=== PATIENT | female | born 1995 | race Caucasian/White ===

== ENCOUNTER 2017-06-16 17:25 | Emergency (ER) | payer SELFPAY ==
[~2017-06-16] VITALS: Ht 157.5 cm; Wt 74.0 kg
[2017-06-16] MEDS ORDERED: BACITRACIN ZINC OINT UDPKT TOP ONE (21:15)
[2017-06-16] MEDS ORDERED: ACETAMINOPHEN 500MG TABLET PO ONE (21:15)
[2017-06-16 21:30] VITALS: BP 129/78
== END 2017-06-16 21:38 | disposition home or self-care (01) ==
LOC: ER 17:39
DX: S70.212A Abrasion, left hip, initial encounter (principal); M79.644 Pain in right finger(s); V49.40XA Driver injured in collision with unspecified motor vehicles in traffic accident, initial encounter; Y93.89 Activity, other specified; Y99.8 Other external cause status; Y92.410 Unspecified street and highway as the place of occurrence of the external cause
CPT/HCPCS: 99283